=== PATIENT | female | born 1955 | race American Indian/Alaskan Native ===

== ENCOUNTER 2021-10-10 21:18 | Emergency (ER) | payer BC ==
[2021-10-10 21:59] LABS: Color,Urine Colorless (Yellow)
[2021-10-10 22:07] LABS: Basophils # (Auto) 0.1 K/mm3 (0.0-0.1); Basophils % (Auto) 0.9 % (0.0-1.8); Eosinophils # (Auto) 0.3 K/mm3 (0.0-0.4); Eosinophils % (Auto) 2.6 % (0.0-4.3); Hematocrit 40.8 % (30.3-42.9); Lymphocytes # (Auto) 3.9 K/mm3 (1.2-5.4); Lymphocytes % (Auto) 38.7 % (13.4-35.0); Mean Corpuscular HGB Conc 34 % (30-34); Mean Corpuscular Volume 92 fl (79-97); Monocytes # (Auto) 0.7 K/mm3 (0.0-0.8); Monocytes % (Auto) 6.4 % (0.0-7.3); Platelet Count 377 K/mm3 (140-440); Red Blood Count 4.46 M/mm3 (3.65-5.03); Red Cell Distribution Width 13.6 % (13.2-15.2)
[2021-10-10 22:16] LABS: INR 0.83 (0.87-1.13)
[2021-10-10 22:17] LABS: Partial Thromboplastin Time 23.9 Sec. (24.2-36.6)
--- NOTE | 2021-10-10 22:17 | XRay Report ---
CHEST 2 VIEWS INDICATION / CLINICAL INFORMATION: Chest Pain. COMPARISON: None available. FINDINGS: SUPPORT DEVICES: None. HEART / MEDIASTINUM: No significant abnormality. LUNGS / PLEURA: No significant pulmonary or pleural abnormality. No pneumothorax. ADDITIONAL FINDINGS: There are right upper quadrant cholecystectomy clips. IMPRESSION: 1. No acute findings. Signer Name: Toni Carreon MD Signed: 10/10/2021 10:12 PM Workstation Name: [email or web address]
[2021-10-10 22:55] LABS: Alanine Aminotransferase 17 units/L (7-56); Albumin 4.7 g/dL (3.9-5); Blood Urea Nitrogen 17 mg/dL (7-17); Calcium 10.2 mg/dL (8.4-10.2); Hemolysis Index 12
[2021-10-10 22:58] LABS: BUN/Creatinine Ratio 28
[2021-10-11 07:47] VITALS: BP 196/87
--- NOTE | 2021-10-11 09:45 | Electrocardiograph Report ---
[facility] Test Date: 2021-10-10 Test Time: 21:22:44 Pat Name: SHUKRI TALAVERA Department: Room: Gender: F [employer] Lab Analyst: EVARISTO : 1955 Requested By: NAVEED MEYER Order Number: [id number] Reading MD: Herberth Craig Measurements Intervals [place] Rate: 73 P: 58 MT: 184 QRS: -38 QRSD: 94 T: 60 QT: 421 QTc: 465 Interpretive Statements Sinus rhythm Incomplete right bundle branch block Left atrial enlargement Left axis deviation No previous ECG available for comparison Electronically Signed On 10-11-2021 9:44:48 EDT by Herberth Craig
== END 2021-10-11 09:56 | disposition left against medical advice (07) ==
LOC: ED 21:18
DX: R07.9 Chest pain, unspecified (principal); R06.02 Shortness of breath; Z53.21 Procedure and treatment not carried out due to patient leaving prior to being seen by health care provider
CPT/HCPCS: 36415; 71046; 80053; 81001; 84484; 85025; 85610; 85730; 86850; 86900; 86901; 93005